=== PATIENT | male | born 1995 | race Caucasian/White ===

== ENCOUNTER 2020-09-20 17:21 | Emergency (ER) | payer OTHER, SELFPAY ==
[2020-09-20 17:43] VITALS: BP 120/78; PULSE 106; RESP 16; TEMP 37.7; O2SAT 98; BMI 31.8
--- NOTE | 2020-09-20 18:44 | ED.GENADULT ---
HPI - General Adult General Chief complaint: General Medical Stated complaint: covid symptoms Time Seen by Provider: 09/20/20 18:44 History of Present Illness HPI narrative: Patient complains of cough, runny nose, body aches for 2 days, no shortness of breath, he also has a mild sore throat, no fever no chills no shortness of breath no sputum This is 2 days and symptoms are mild Related Data Allergies Allergy/AdvReac Type Severity Reaction Status Date / Time Penicillins [PENICILLINS] Allergy Unknown UNK Unverified 07/21/20 16:35 Review of Systems Review of Systems: Review of systems is positive for cough runny nose and mild sore throat There is no headache there is no dizziness there is no neck pain, there is no chest pain no shortness of breath no sputum, there is no abdominal pain no nausea vomiting or diarrhea, no urinary symptoms, no leg swelling no rash PMFSH Social History Social History Smoked in Last 30 Days: No Use of substances other than those prescribed or required for medical reasons: No Advance Directives: No Advance Directives Information Provided: Yes Physical Exam Vital Signs: Vital Signs: Last Vital Signs Temp 99.9 F 09/20/20 17:43 Pulse 106 H 09/20/20 17:43 Resp 16 09/20/20 17:43 BP 120/78 09/20/20 17:43 Pulse Ox 98 09/20/20 17:43 Body Mass Index 31.8 General appearance a and O x3 comfortable no acute distressed relaxed and cooperative The eyes are clear with no redness or discharge The sinuses are not tender The pharynx is clear without redness swelling exudate, mucous membranes are moist, uvula is midline The neck is supple without lymphadenopathy The chest is clear with full equal symmetrical breath sounds The heart no murmur Extremities no rashes no edema The abdomen is soft and nontender Neuro no focal deficit Course Course Course Narrative: COVID testing was done, patient is comfortable and no distress throughout ER visit Discharge Plan Discharge Clinical Impression: Acute viral syndrome Patient Disposition: Home, Self-Care Additional Instructions: We will call you with COVID test results in 2-3 days Return any time any worse condition or any concerns Chest was clear oxygen was normal no sign of any serious condition today Her symptoms may be COVID and the test is not perfect and this is many cases so best plan is do not return to work until symptoms are better and the testing is negative and wear mask and keep the distance from other people Stand Alone Forms: Work/School Release Interventions: ED Discharge Assessment Last Done: 09/20/20 18:59 Discharge Date/Time: 09/20/20 19:01
== END 2020-09-20 19:01 | disposition home or self-care (01) ==
PROVIDERS: Emergency Provider Emergency Medicine
DX: B34.9 Viral infection, unspecified (principal); R05 Cough; M79.10 Myalgia, unspecified site; Z20.828 Contact with and (suspected) exposure to other viral communicable diseases
CPT/HCPCS: 99283; 99284; U0003